=== PATIENT | female | born 1965 | race Two or more races ===

== ENCOUNTER 2022-04-05 11:56 | Emergency (ER) | payer OTHER ==
[2022-04-05 13:02] LABS: HEMOGLOBIN 11.6 gm/dl (12.3-15.3); RED BLOOD COUNT 4.36 M/UL (4.00-5.10); WHITE BLOOD COUNT 12.8 K/UL (4.5-11.0)
[2022-04-05 13:15] LABS: BUN/CREATININE RATIO 19 (0-10)
[2022-04-05 13:26] LABS: ADENOVIRUS F 40/41 Not Detected (Negative); ASTROVIRUS Not Detected (Negative); CAMPYLOBACTER Not Detected (Negative); CRYPTOSPORIDIUM Not Detected (Negative); E.COLI 0157 Not Detected (Negative); ENTAMOEBA HISTOLYTICA Not Detected (Negative); ENTEROAGGREGATIVE E.COLI (EAEC Not Detected (Negative); ENTEROPATHOGENIC E.COLI (EPEC) Not Detected (Negative); GIARDIA LAMBLIA Not Detected (Negative); NOROVIRUS GI/GII Not Detected (Negative); PLESIOMONAS SHIGELLOIDES Not Detected (Negative); ROTOVIRUS A Not Detected (Negative); SALMONELLA Not Detected (Negative); SAPOVIRUS Not Detected (Negative); SHIG/ENTEROINVAS.ECOLI (EIEC) Not Detected (Negative); SHIGA-LIK TOX.PRO.E.COLI (STEC Not Detected (Negative); VIBRIO Not Detected (Negative); VIBRIO CHOLERAE Not Detected (Negative); YERSINIA ENTEROCOLITICA Not Detected (Negative)
[2022-04-05 15:52] LABS: CLOSTRIDIUM DIFFICILE TOX A/B Not Detected (Negative); ENTEROTOXIGENIC E.COLI (ETEC) DETECTED (Negative)
[2022-04-05] MEDS ORDERED: ONDANSETRON ODT4 MG SL (16:27)
[2022-04-05] MEDS ORDERED: CIPRO500 MG PO (16:27)
== END 2022-04-05 16:50 | disposition home or self-care (01) ==
LOC: ER1 11:56
PROVIDERS: Physician Assistant
DX: K52.9 Noninfective gastroenteritis and colitis, unspecified (principal); Z20.822 Contact with and (suspected) exposure to COVID-19; K21.9 Gastro-esophageal reflux disease without esophagitis; E11.9 Type 2 diabetes mellitus without complications; I10 Essential (primary) hypertension; Z90.710 Acquired absence of both cervix and uterus
CPT/HCPCS: 0240U; 80053; 81001; 82550; 82553; 83690; 84484; 85025; 87086; 87507; 93005; 96374; 96375; 99284; C9113; J2405; Q9967